=== PATIENT | female | born 1975 | race Caucasian/White ===

== ENCOUNTER 2017-07-31 16:42 | Emergency (ER) | payer OTHER ==
[~2017-07-31] VITALS: Ht 165.1 cm; Wt 66.2 kg
[~2017-07-31 16:42] MED LIST: ESTR1.25 PO; ONDA4 PO; PROM25TA5 PO; ULTR50TA PO
[2017-07-31 16:43] VITALS: BP 114/56; PULSE 93; RESP 18; TEMP 98.4; O2SAT 99
[2017-07-31] MEDS ORDERED: SODIUM CHLOR 0.9% 1000 ML INJ 1,000 ML IV ONE (17:00)
[2017-07-31] MEDS ORDERED: PROCHLORPERAZINE INJ 10 MG/2 ML VIAL IVP ONE (17:00)
[2017-07-31] MEDS ORDERED: SODIUM CHLORIDE 0.9% FLUSH 10 ML FLUSH IVF PRN (17:00)
[2017-07-31] MEDS ORDERED: diphenhydrAMINE HCL 50 MG/ML VIAL IVP ONE (17:00)
[2017-07-31] MEDS ORDERED: MORPHINE SULFATE 8 MG/ML INJ IV PUSH ONE (17:00)
--- NOTE | 2017-07-31 17:04 | PD ---
HPI Chief Complaint: Headache Time Seen by Provider: 17:00 Travel History International Travel<30 days: No Contact w/Intl Traveler<30days: No Traveled to known affect area: No History of Present Illness HPI The patient is a 42-year-old female who presents to the emergency department for headache. The patient states she developed a headache that started 2-1/2 days ago. The headache initially was located over the frontal area bilateral, now radiates from the neck up to the frontal area bilaterally, throbbing on the right side worse than the left side. She also complains of right sided neck stiffness and pain associated with her headache. The patient denies any photophobia or phonophobia, however, does complain of bilateral blurry vision secondary to the headache. The patient was treated for sinusitis one week ago with Zithromax, completed the course of treatment and blisters sinus infection has improved. She denies any significant facial congestion or nasal congestion at this time. The patient also has a history of migraines, however, states his headache is somewhat different. She denies any pain with extraocular movements. She denies any thunderclap quality to the headache and states the headache started slowly came on gradually. She denies any redness to the right eye denies any history of glaucoma. She denies any acute fever, chills, or sweats. Symptoms are moderate, not alleviated with [id number] cough and cold medications, and there are no known exacerbating factors. PFSH Past Medical History Blood Disorders: No Cancer: No Cardiovascular Problems: No Chemotherapy: No Cerebrovascular Accident: No Diabetes: No (HX GESTATIONAL ) Endocrine: No Gastrointestinal Disorders: Yes (IBS) GERD: No Glaucoma: No Genitourinary: No Headaches: No Hepatitis: No Hiatal Hernia: No Hypertension: No Immune Disorder: No Kidney Stones: No Musculoskeletal: No (BACK PAIN) Neurologic: No Psychiatric: No Reproductive: Yes (PELVIC PAIN) Respiratory: No Migraines: No Radiation Therapy: No Renal Failure: No Seizures: No Thyroid Disease: No Ulcer: No ?: Not Ovarian Cysts: Yes Past Surgical History Abdominal Surgery: Yes (APPENDECTOMY ) Appendectomy: Yes (JUNE 2007) Body Medical Devices: NONE Cardiac Surgery: No Cholecystectomy: No Ear Surgery: Yes (left ear surgery ) Endocrine Surgery: No Eye Surgery: No Genitourinary Surgery: No Gynecologic Surgery: Yes (MULTIPLE LAPAROSCOPY ; RIGHT BREAST BIOPSY X 3) Oral Surgery: Yes (WISDOM TEETH) Pacemaker: No Thoracic Surgery: No Tonsillectomy: Yes Other Surgery: Yes (LAPROSCROPY) Social History Alcohol Use: No Tobacco Use: No Substance Use: No Allergies-Medications (Allergen,Severity, Reaction): Coded Allergies: No Known Allergies (Verified Adverse Reaction, Unknown, 07/31/17) Reported Meds & Prescriptions Reported Meds & Active Scripts Active Claritin-D 12 HR (Loratadine-Pseudoephedrine 12 HR) 5-120 Mg Tab 1 Tab PO BID 10 Days Augmentin (Amoxicillin-Clavulanate) 875-125 Mg Tab 1 Tab PO BID 10 Days Medrol Dosepak (Methylprednisolone) 4 Mg Dspk 4 Mg PO DIRECTED Per Pharmacist direction Reported Multi-Vitamin Daily (Multiple Vitamin) 1 Tab Tab 1 Tab PO DAILY Xanax (Alprazolam) 0.25 Mg Tab 0.25 Mg PO Q4H PRN Fioricet (Jarxjofomh-Yjdrrepjhjbnt-Mmxqtyvf) 50-300-40 Mg Cap Unknown Dose PO DAILY Estradiol 1 Mg Tab 1.5 Mg PO DAILY [Estro] Review of Systems Except as stated in HPI: all other systems reviewed are Neg General / Constitutional: No: Fever Eyes: Positive: Blurred Vision, No: Photophobia HENT: Positive: Headaches, Neck Stiffness, Neck Pain Cardiovascular: No: Chest Pain or Discomfort Respiratory: No: Shortness of Breath Gastrointestinal: No: Nausea, Vomiting Musculoskeletal: No: Weakness Neurologic: Positive: Headache, No: Dizziness, Change in Mentation, Slurred Speech, Paresthesia, Sensory Disturbance Physical Exam Narrative GENERAL: Awake, alert, pleasant 42-year-old female appears her stated age and is in no acute respiratory distress. SKIN: Focused skin assessment warm/dry. HEAD: Atraumatic. Normocephalic. EYES: Pupils equal and round. Pupils are 4 mm bilateral and reactive. EOMs are intact. Patient is able to see fingers at a distance of 2 feet without difficulty. Extraocular muscle movement does not exacerbate her pain. No obvious ptosis or myosis of the right side. ENT: No nasal bleeding or discharge. Mucous membranes pink and moist. NECK: Trachea midline. No JVD. Mild tenderness of the right paravertebral muscles in the right sternocleidomastoid, pain elicited with extension, flexion , and rotation of the neck, but no true meningeal signs. CARDIOVASCULAR: Regular rate and rhythm. No murmur appreciated. RESPIRATORY: No accessory muscle use. Clear to auscultation. Breath sounds equal bilaterally. GASTROINTESTINAL: Abdomen soft, non-tender, nondistended. MUSCULOSKELETAL: No obvious deformities. No clubbing. No cyanosis. No edema. NEUROLOGICAL: Awake and alert. No obvious cranial nerve deficits. Motor grossly within normal limits. Normal speech. Nonfocal. Oriented 4. Follows commands without difficulty. PSYCHIATRIC: Appropriate mood and affect; insight and judgment normal. Data Data Last Documented VS Vital Signs Date Time Temp Pulse Resp B/P (MAP) Pulse Ox O2 Delivery O2 Flow Rate FiO2 07/31/17 17:41 85 16 96/65 (75) 100 Room Air 07/31/17 16:[address] Brain W/O Iv Contrast(Rout) (07/31/17 17:00) Ecg Monitoring (07/31/17 17:00) Iv Access Insert/Monitor (07/31/17 17:00) Oximetry (07/31/17 17:00) Sodium Chloride 0.9% Flush (Ns Flush) (07/31/17 17:00) Prochlorperazine Inj (Compazine Inj) (07/31/17 17:00) Diphenhydramine Inj (Benadryl Inj) (07/31/17 17:00) Sodium Chlor 0.9% 1000 Ml Inj (Ns 1000 M (07/31/17 17:00) Morphine Inj (Morphine Inj) (07/31/17 17:00) Basic Metabolic Panel (Bmp) (07/31/17 17:04) Cta Neck W Iv Contrast W 3d (07/31/17 ) Iohexol 350 Inj (Omnipaque 350 Inj) (07/31/17 18:09) Ketorolac Inj (Toradol Inj) (07/31/17 18:15) Labs Laboratory Tests Test 07/31/17 17:14 Blood Urea Nitrogen 11 MG/DL Creatinine 0.68 MG/DL Random Glucose 99 MG/DL Calcium Level 8.0 MG/DL Sodium Level 139 MEQ/L Potassium Level 3.4 MEQ/L Chloride Level 103 MEQ/L Carbon Dioxide Level 29.8 MEQ/L Anion Gap 6 MEQ/L Estimat Glomerular Filtration Rate 95 ML/MIN MDM Medical Decision Making Medical Screen Exam Complete: Yes Emergency Medical Condition: Yes Medical Record Reviewed: Yes Interpretation(s) Last Impressions Head CT 07/31/17 1700 Signed Impressions: Service Date/Time: Monday, July 31, 2017 17:50 - CONCLUSION: Sinusitis. Jason Mccray MD Laboratory Tests Test 07/31/17 17:14 Blood Urea Nitrogen 11 MG/DL Creatinine 0.68 MG/DL Random Glucose 99 MG/DL Calcium Level 8.0 MG/DL Sodium Level 139 MEQ/L Potassium Level 3.4 MEQ/L Chloride Level 103 MEQ/L Carbon Dioxide Level 29.8 MEQ/L Anion Gap 6 MEQ/L Estimat Glomerular Filtration Rate 95 ML/MIN CTA is negative. No cyanosis. No dissection. Pansinusitis. Differential Diagnosis Differential diagnosis includes migraine, tension headache, carotid dissection, vertebral artery dissection, meningitis, sinusitis, cavernous sinus thrombosis. Narrative Course IV was established, labs are drawn and sent, and the patient was placed on cardiac telemetry monitoring and continuous pulse oximetry monitoring. CT of the brain and CTA were performed to rule out subarachnoid hemorrhage and vertebral/carotid dissection. The patient was administered Compazine, Benadryl , morphine, and IV fluids. No test is warranted as the patient has a history of hysterectomy. I doubt meningitis as the patient's headache has been ongoing for 2-1/2 days and the patient is currently afebrile. CT of the brain is negative for hemorrhage, does reveal sinusitis. After CT was noted to have no hemorrhage, the patient was administered Toradol 30 mg intravenously. Diagnosis Primary Impression: Cephalgia Qualified Codes: R51 - Headache Additional Impression: Sinusitis Qualified Codes: J01.90 - Acute sinusitis, unspecified Patient Instructions: General Instructions Additional Instructions: Medications as directed. Follow-up with her primary physician. Please provide the patient a copy of her CT results and lab results at discharge. Return if symptoms worsen or progress. Med/Other Pt SpecificInfo: Prescription(s) given Scripts Loratadine-Pseudoephedrine 12 HR (Claritin-D 12 HR) 5-120 Mg Tab 1 TAB PO BID for Allergy Management for 10 Days, #20 TAB 0 Refills Prov: Shorty Holman MD 07/31/17 Amoxicillin-Clavulanate (Augmentin) 875-125 Mg Tab 1 TAB PO BID for Infection for 10 Days, #20 TAB 0 Refills Prov: Shorty Holman MD 07/31/17 Methylprednisolone Dosepak (Medrol Dosepak) 4 Mg Dspk 4 MG PO DIRECTED, #1 DSPK 0 Refills Per Pharmacist direction Prov: Shorty Holman MD 07/31/17 Disposition: 01 DISCHARGE HOME Condition: Stable Shorty Holman MD Jul 31, 2017 17:04
[2017-07-31] MEDS ORDERED: ESTR1TAB PO (17:11)
[2017-07-31] MEDS ORDERED: MULT-65 PO (17:11)
[2017-07-31] MEDS ORDERED: ALPR.25 PO (17:11)
[2017-07-31] MEDS ORDERED: BUTA1CAP PO (17:11)
[2017-07-31] MEDS ORDERED: ESTRO (17:11)
[2017-07-31 17:12] VITALS: O2SAT 99
[2017-07-31 17:41] VITALS: BP 96/65; PULSE 85; RESP 16; O2SAT 100
[2017-07-31 17:56] LABS: POTASSIUM 3.4 MEQ/L (3.5-5.1)
[2017-07-31 17:59] LABS: BICARBONATE 29.8 MEQ/L (21.0-32.0)
--- NOTE | 2017-07-31 18:08 | RADRPT ---
EXAM DATE/TIME: 07/31/2017 17:50 [facility] COMPARISON: No previous studies available for comparison. INDICATIONS : Frontal headache radiating from neck up and right sided neck stiffness. RADIATION DOSE: 59.97 CTDIvol (mGy) MEDICAL HISTORY : None SURGICAL HISTORY : Tonsillectomy. Appendectomy.Left ear surgery. ENCOUNTER: Initial ACUITY: 3 days PAIN SCALE: 10/10 LOCATION: frontal TECHNIQUE: Multiple contiguous axial images were obtained of the head. Using automated exposure control and adj ustment of the mA and/or kV according to patient size, radiation dose was kept as low as reasonably a chievable to obtain optimal diagnostic quality images. DICOM format image data is available electro nically for review and comparison. FINDINGS: The brain is normal in appearance. No hemorrhage, infarct, or mass. The mastoid air cells are well ae rated and there are no fractures. There is complete opacification of the anterior ethmoid air cells b ilaterally and the left posterior ethmoids with mucosal thickening in the right posterior ethmoids, c ircumferential mucosal thickening and air-fluid levels in the sphenoid sinuses and opacification of t he superior visualized portion of the maxillary sinuses. Frontal sinuses are well aerated. CONCLUSION: Sinusitis. Jason Mccray MD on July 31, 2017 at 18:05 Board Certified Radiologist. This report was verified electronically.
[2017-07-31] MEDS ORDERED: IOHEXOL 350 MG/ML 10 ML VIAL (for RAD DIAG) IVCONTRAST ONE (18:09)
[2017-07-31] MEDS ORDERED: KETOROLAC TROMETHAMINE 30 MG/ML (IVP) VIAL IV PUSH ONE (18:15)
[2017-07-31] MEDS ORDERED: MEDR4PAK PO (18:32)
[2017-07-31] MEDS ORDERED: AUGM875T3 PO (18:32)
[2017-07-31] MEDS ORDERED: CLAR5TAB9 PO (18:32)
--- NOTE | 2017-07-31 18:34 | RADRPT ---
EXAM DATE/TIME: 07/31/2017 17:50 [facility] COMPARISON: CT BRAIN W/O CONTRAST, July 31, 2017, 17:50. INDICATIONS : Frontal headache radiating from neck up and right sided neck stiffness. Evaluate for dissection. IV CONTRAST: 75 cc Omnipaque 350 (iohexol) IV RADIATION DOSE: 42.17 CTDIvol (mGy) MEDICAL HISTORY : None SURGICAL HISTORY : Tonsillectomy. Appendectomy.Left ear surgery. ENCOUNTER: Initial ACUITY: 3 days PAIN SCALE: 6/10 LOCATION: Right neck Elevated flow velocities and ICA/CCA ratios have been found to correlate with increased degrees of vessel stenosis, calculated as percentage of diameter relative to a normal segment of distal ICA/CCA. TECHNIQUE: Volumetric scanning was performed using a multirow detector CT scanner. The data was post processed with a variety of visualization algorithms including full-volume maximum intensity projection, multip lanar sliding thin-slab reformation, curved-planar reformation, and surface-rendering techniques. Us ing automated exposure control and adjustment of the mA and/or kV according to patient size, radiatio n dose was kept as low as reasonably achievable to obtain optimal diagnostic quality images. DICOM f ormat image data is available electronically for review and comparison. FINDINGS: AORTIC ARCH: There is a three-vessel origin of the great vessels from the aorta. No evidence of ostial narrowing. RIGHT CAROTID: The common carotid artery is intact. The carotid bulb has a normal configuration without ulceration o r narrowing. The internal carotid artery lumen is smooth without stenosis. The external carotid kehinde ry is intact. LEFT CAROTID: The common carotid artery is intact. The carotid bulb has a normal configuration without ulceration or narrowing. The internal carotid artery lumen is smooth without stenosis. The external carotid ar alivia is intact. VERTEBRALS: The vertebral arteries have a symmetric diameter. No stenotic lesions are seen. Diffuse mucoperiosteal thickening and debris/fluid seen in the paranasal sinuses. CONCLUSION: Negative. No stenosis. No dissection. Pansinusitis. Tigre Krishnamurthy MD on July 31, 2017 at 18:29 Board Certified Radiologist. This report was verified electronically.
== END 2017-07-31 19:01 | disposition home or self-care (01) ==
LOC: PHED 16:42
DX: R51 Headache (principal); J01.90 Acute sinusitis, unspecified; M54.2 Cervicalgia; M43.6 Torticollis; Z87.19 Personal history of other diseases of the digestive system; Z87.42 Personal history of other diseases of the female genital tract
CPT/HCPCS: 70450; 70498; 80048; 96361; 96374; 96375; 99285; J0780; J1200; J1885; J2270; J7030; Q9967